=== PATIENT | female | born 1950 | race Caucasian/White ===

== ENCOUNTER → 2016-08-08 | Outpatient (CLI) | payer BC ==
[~2016-08-08] VITALS: Ht 165.1 cm; Wt 119.3 kg
[~2016-08-08] MED LIST: ASPI81TA2 PO; ATEN1TAB4 PO; CA C1TAB28 PO; CALC-98 PO; CYAN10005 PO; GLUC1CAP48 PO; LEVO150T5 PO; MOME13HF IH; MULT-245 PO; OMEP20CA9 PO; POTA10TA5 PO; PROAIR HFA8.5 GM IH
[2016-08-08 14:13] VITALS: BP 143/64
--- NOTE | 2016-08-08 15:36 | RAD ---
Ultrasound-guided fine-needle aspiration of the thyroid History: Right thyroid nodule. Comparison: Outside thyroid ultrasound 06/25/2016. Procedure: Risks and benefits of procedure were discussed with patient. Written informed consent was obtained. Preprocedure imaging demonstrated markedly heterogeneous and enlarged thyroid. The previously identified thyroid nodule is less apparent on current examination, although under real-time scanning, a definitive separation of the inferior thyroid nodule could be seen. The large inferior right thyroid nodule was targeted. Appropriate site on the skin was marked. The skin was prepped and draped in usual sterile fashion. Local anesthesia was provided with 1% lidocaine. Under ultrasound visualization, 4 total 25-gauge FNA passes were made of the inferior right thyroid nodule. During the procedure, especially near the end, the patient complained of choking sensation. It was decided not to deploy a Rotex device. Procedure was then terminated. Patient tolerated procedure well and there were no acute ill effects. Cytology was present to take custody of the samples. Impression: Technically successful fine-needle aspiration of right inferior thyroid nodule. 4 total 25-gauge fine-needle aspiration samples were obtained.
== END | disposition home or self-care (01) ==
LOC: US 13:50
PROVIDERS: ATTEND Surgery
DX: I25.10 Atherosclerotic heart disease of native coronary artery without angina pectoris (principal); E04.1 Nontoxic single thyroid nodule; E04.9 Nontoxic goiter, unspecified
CPT/HCPCS: 60300; 76942

== ENCOUNTER → 2017-08-03 | Outpatient (CLI) | payer BC | END | disposition home or self-care (01) | LOC: ECHO 09:03 | DX: I50.32 Chronic diastolic (congestive) heart failure (principal); I36.1 Nonrheumatic tricuspid (valve) insufficiency | CPT/HCPCS: 93306 ==

== ENCOUNTER 2017-12-28 06:09 | Observation (INO) | payer BC ==
[2017-12-28] VITALS (9 sets, daily range): BP systolic 105–124; BP diastolic 52–63
[~2017-12-28] VITALS: Ht 165.1 cm; Wt 117.0 kg
[~2017-12-28 06:09] MED LIST changes: +ASPI-630 PO; -ASPI81TA2 PO; +BUDE10.22 IH; +CITA10TA4 PO; +FURO-68 PO; +POTA10TA12 PO; -POTA10TA5 PO; +SIMV10TA3 PO
[2017-12-28] MEDS ORDERED: PROCHLORPERAZINE 10 MG/2 ML VIAL. IV PRN (07:00)
[2017-12-28] MEDS ORDERED: ONDANSETRON PF 4 MG/2 ML VIAL. IV PRN ×2 (07:00→10:30)
[2017-12-28] MEDS ORDERED: MORPHINE SULFATE 2 MG/ML VIAL. IV PRN ×2 (07:00→10:30)
[2017-12-28] MEDS ORDERED: fentaNYL PF VIAL 100 MCG/2 ML VIAL IV PRN (07:00)
[2017-12-28] MEDS ORDERED: LIDOCAINE 1% PF 2 ML VIAL. ID PRN (07:00)
[2017-12-28] MEDS ORDERED: HYDROmorphone 2 MG/ML VIAL IV PRN (07:00)
[2017-12-28] MEDS: IV RINGERS,LACTATED 1000ML 1,000 ML IV SCH ×2 (07:03→11:05)
[2017-12-28] MEDS ORDERED: MIDAZOLAM HCL/PF 2 MG/2 ML VIAL. ONE (07:18)
[2017-12-28] MEDS ORDERED: fentaNYL PF VIAL 250 MCG/5 ML VIAL ONE (07:18)
[2017-12-28] MEDS ORDERED: SUCCINYLCHOLINE 200 MG/10 ML VIAL. ONE (07:18)
[2017-12-28] MEDS ORDERED: ePHEDrine PF IN SALINE 50 MG/5 ML DISP.SYRIN IV ONE (08:12)
[2017-12-28] MEDS ORDERED: ONDANSETRON PF 4 MG/2 ML VIAL. ONE (08:35)
[2017-12-28] MEDS ORDERED: PROPOFOL 20 ML IV ONE (08:35)
[2017-12-28] MEDS ORDERED: PHENYLEPHRINE in 0.9% NACL PF 1 MG/10 ML SYRINGE. IV ONE (08:35)
[2017-12-28] MEDS ORDERED: DEXAMETHASONE SOD PHOS 20 MG/5 ML VIAL. ONE (08:35)
[2017-12-28] MEDS ORDERED: HYDROCORTISONE SOD SUCC/PF 100 MG/2 ML VIAL. ONE (08:35)
[2017-12-28] MEDS ORDERED: SEVOFLURANE > 120 MINUTES. IH ONE (08:36)
[2017-12-28] MEDS ORDERED: HYDROcodone/APAP 5/325MG 1 TAB TABLET PO PRN (10:30)
[2017-12-28] MEDS ORDERED: FUROSEMIDE 40 MG TABLET. PO PRN (10:30)
[2017-12-28] MEDS ORDERED: 0.9 % SODIUM CHLORIDE 10 ML DISP.SYRIN. IV PRN (10:30)
--- NOTE | 2017-12-28 10:38 | PDOC4 ---
Operative Note Operative Note Operative Note: Preoperative Diagnosis: Right thyroid nodule Postoperative Diagnosis: Same Procedure: Right thyroidectomy Surgeon: Ross Newspaper Writer: Dr. Blum Anesthesia: Gen. EBL: 50 mL Specimen: Right thyroid, stitch superior pole to pathology Drains: None Complications: None Indication: The patient is a 67-year-old female who had been followed with a right thyroid nodule. The nodule had increased in size and showed some suspicious features. Based on this the plan is to proceed with a right thyroidectomy and possible total thyroidectomy. The details and risks of surgery were discussed with the patient. The risks include bleeding, infection, recurrent laryngeal nerve injury, hypoparathyroidism, voice changes, pain, anesthetic risk, potential need for additional surgery or procedure. She understands and would like to proceed. Description: The patient was taken to the operating room and placed supine on the operating table. Gen. anesthesia was performed and the Nims device was assembled. The anterior neck was prepped with ChloraPrep and draped in a standard surgical manner. A curved incision was made in the skin lines of the neck 2 fingerbreadths above the sternal notch. Cautery dissection was carried down through platysma. Subplatysmal flaps were developed superiorly and inferiorly. The Mahorner retractor was used to facilitate exposure. The strap muscle fascia was divided in the midline and we began exploring the right thyroid lobe. There appeared to be a fairly marked amount of adherence to the strap muscles consistent with potential thyroiditis. In addition the gland and nodule were fairly thickened and difficult to mobilize. For that reason I did elect to divide the strap muscle fascia using the Harmonic scalpel to aid in exposure. We began dissecting along the superior pole and the vessels there were ligated with 2-0 Vicryl and divided. The Harmonic scalpel continued to assist with dissection. In a similar manner the inferior pole vessels were ligated with 2-0 Vicryl and divided. We then continued to mobilize in the lateral to medial fashion the remaining portion of the thyroid lobe. There was a glandular structure suspicious for parathyroid gland which was left intact and unharmed. Also the recurrent laryngeal nerve was readily identified at its insertion point of the trachea. The nerve stimulated appropriately with the Nims device and it was carefully preserved as well. The remainder of the thyroid was dissected free of the trachea using the Harmonic scalpel. We did include the isthmus and the specimen was marked at the superior aspect with a stitch and sent to pathology. Initial pathologic evaluation showed no clear evidence of malignancy and they noted changes consistent with thyroiditis as well. Hemostasis was intact and the nerve again stimulated appropriately with the Nims device. The divided strap muscle fascia was reapproximated with 3-0 Vicryl. The midline strap muscles were also approximated with 3-0 Vicryl. The platysma was then closed with 3-0 Vicryl and skin approximated with 4-0 Monocryl. Steri-Strips and a dressing were applied. The patient tolerated the procedure well and was sent to the recovery room in stable condition. At the end of the case all counts were correct. CHESTER CHAVEZ MD Dec 28, 2017 10:38
[2017-12-28] MEDS: fentaNYL PF VIAL 100 MCG/2 ML VIAL IV PRN ×2 (11:06→11:15)
[2017-12-28] MEDS: HYDROcodone/APAP 5/325MG 1 TAB TABLET PO PRN ×2 (12:09→20:38)
[2017-12-28] MEDS ORDERED: NON FORMULARY ITEM (Gluc 2KCL/Chondr/Coll Hy/Hy Ac (Glucosamine & Chondroitin Cap) 1 EACH) PO SCH (14:00)
[2017-12-28] MEDS ORDERED: IV 1/2 NORMAL SALINE 1,000 ML IV SCH (15:00)
[2017-12-28] MEDS: ALBUTEROL SULFATE 2.5 MG/3 ML NEBU. NEB SCH ×2 (15:37→20:44)
[2017-12-28] MEDS: POTASSIUM CHLORIDE 20 MEQ TABLET.ER. PO SCH ×2 (20:34→20:52)
[2017-12-28] MEDS: BUDESONIDE 0.5 MG/2 ML NEBU. NEB SCH (20:44)
[2017-12-28] MEDS ORDERED: SIMVASTATIN 10 MG TABLET PO SCH (21:00)
[2017-12-29 03:00] VITALS: BP 107/55
[2017-12-29] MEDS: HYDROcodone/APAP 5/325MG 1 TAB TABLET PO PRN (06:40)
[2017-12-29 07:00] VITALS: BP 113/57
[2017-12-29] MEDS ORDERED: LEVOTHYROXINE 150 MCG TABLET PO SCH (07:00)
[2017-12-29] MEDS ORDERED: PANTOPRAZOLE 40 MG TABLET.DR. PO SCH (07:30)
[2017-12-29 09:00] VITALS: BP 113/57
[2017-12-29] MEDS ORDERED: MULTIVITAMIN with MINERAL TABLET. PO SCH (09:00)
[2017-12-29] MEDS ORDERED: CITALOPRAM 10 MG TABLET. PO SCH (09:00)
[2017-12-29] MEDS ORDERED: CHLORTHALIDONE 25 MG TABLET. PO SCH (09:00)
[2017-12-29] MEDS: POTASSIUM CHLORIDE 20 MEQ TABLET.ER. PO SCH ×2 (09:00→09:58)
[2017-12-29] MEDS: CALCIUM CARB/VIT D3 500/200 TABLET. PO SCH ×2 (09:00→09:59)
[2017-12-29] MEDS ORDERED: ASPIRIN CHEWABLE 81 MG TABLET. PO SCH (09:00)
[2017-12-29] MEDS ORDERED: CHOLECALCIFEROL (VITAMIN D3) 1,000 UNIT TABLET PO SCH (09:00)
[2017-12-29] MEDS ORDERED: CYANOCOBALAMIN (VITAMIN B-12) 1,000 MCG TABLET. PO SCH (09:00)
[2017-12-29] MEDS ORDERED: ATENOLOL 50 MG TABLET. PO SCH (09:00)
[2017-12-29] MEDS: BUDESONIDE 0.5 MG/2 ML NEBU. NEB SCH (09:08)
[2017-12-29] MEDS: ALBUTEROL SULFATE 2.5 MG/3 ML NEBU. NEB SCH ×2 (09:09→11:27)
--- NOTE | 2017-12-29 09:40 | PDOC ---
PROGRESS NOTES Subjective Subjective doing well, voice strong Objective Objective Vital Signs Date Time Temp Pulse Resp B/P (MAP) Pulse Ox O2 Delivery O2 Flow Rate FiO2 12/29/17 09:08 94 Room Air 12/29/17 07:00 97.6 18 18 113/57 (75) 97.6 12/28/17 14:00 2.0 Intake and Output 12/29/17 07:00 Intake Total 3940 ml Balance 3940 ml Intake Oral 790 ml IV Total 3150 ml # Voids 4 Physical Exam Physical Exam dressing clean and dry Assessment Assessment R thyroid nodule Plan Plan of Care discharge Comment Review of Relevant I have reviewed the following items lou (where applicable) has been applied. Medications Current Medications Ondansetron HCl (Zofran) 4 mg PRN Q6HRS PRN IV NAUSEA/VOMITING 1ST CHOICE; Start 12/28/17 at 07:00; Stop 12/28/17 at 19:00; Status DC Fentanyl Citrate (Fentanyl 2ml Vial) 25 mcg PRN Q5MIN PRN IV MILD PAIN; Start 12/28/17 at 07:00; Stop 12/28/17 at 19:00; Status DC Fentanyl Citrate (Fentanyl 2ml Vial) 50 mcg PRN Q5MIN PRN IV MODERATE TO SEVERE PAIN Last administered on 12/28/17at 11:15; Start 12/28/17 at 07:00; Stop 12/28/17 at 19:00; Status DC Morphine Sulfate (Morphine Sulfate) 1 mg PRN Q10MIN PRN IV SEVERE PAIN; Start 12/28/17 at 07:00; Stop 12/29/17 at 06:59; Status UNV Ringer's Solution 1,000 ml @ 30 mls/hr Q24H IV Last administered on 12/28/17at 11:05; Start 12/28/17 at 07:00; Stop 12/28/17 at 18:59; Status DC Lidocaine HCl (Xylocaine-Mpf 1% 2ml Vial) 2 ml PRN 1X PRN ID PRIOR TO IV START ; Start 12/28/17 at 07:00; Stop 12/28/17 at 19:00; Status DC Hydromorphone HCl (Dilaudid) 0.5 mg PRN Q10MIN PRN IV SEV PAIN, Second choice; Start 12/28/17 at 07:00; Stop 12/29/17 at 06:59; Status UNV Prochlorperazine Edisylate (Compazine) 5 mg PACU PRN PRN IV NAUSEA, MRX1; Start 12/28/17 at 07:00; Stop 12/28/17 at 19:00; Status DC Levofloxacin/ Dextrose 150 ml @ 100 mls/hr 1X PREOP PRN IV PRIOR TO PROCEDURE Last administered on 12/28/17at 08:00; Start 12/28/17 at 06:00; Stop 12/28/17 at 18:00; Status DC Midazolam HCl (Versed) 2 mg STK-MED ONCE .ROUTE ; Start 12/28/17 at 07:18; Stop 12/28/17 at 07:19; Status DC Fentanyl Citrate (Fentanyl 5ml Vial) 250 mcg STK-MED ONCE .ROUTE ; Start at 07:18; Stop 12/28/17 at 07:19; Status DC Succinylcholine Chloride (Anectine) 200 mg STK-MED ONCE .ROUTE ; Start 12/28/17 at 07:18; Stop 12/28/17 at 07:19; Status DC Ephedrine Sulfate (ePHEDrine PF IN SALINE SYRINGE) 50 mg STK-MED ONCE IV ; Start 12/28/17 at 08:12; Stop 12/28/17 at 08:13; Status DC Phenylephrine HCl (PHENYLEPHRINE in 0.9% NACL PF) 1 mg STK-MED ONCE IV ; Start 12/28/17 at 08:35; Stop 12/28/17 at 08:36; Status DC Hydrocortisone Sodium Succinate (Solu-CORTEF) 100 mg STK-MED ONCE .ROUTE ; Start 12/28/17 at 08:35; Stop 12/28/17 at 08:36; Status DC Dexamethasone Sodium Phosphate (Decadron) 20 mg STK-MED ONCE .ROUTE ; Start at 08:35; Stop 12/28/17 at 08:36; Status DC Ondansetron HCl (Zofran) 4 mg STK-MED ONCE .ROUTE ; Start 12/28/17 at 08:35; Stop 12/28/17 at 08:36; Status DC Propofol 20 ml @ As Directed STK-MED ONCE IV ; Start 12/28/17 at 08:35; Stop at 08:36; Status DC Sevoflurane (Ultane) 90 ml STK-MED ONCE IH ; Start 12/28/17 at 08:36; Stop 12/28 at 08:37; Status DC Sodium Chloride (Normal Saline Flush) 3 ml QSHIFT PRN IV AFTER MEDS AND BLOOD DRAWS; Start 12/28/17 at 10:30 Sodium Chloride 1,000 ml @ 70 mls/hr [id number] IV Last administered on at 11:07; Start 12/28/17 at 15:00; Stop 12/29/17 at 01:59; Status DC Acetaminophen/ Hydrocodone Bitart (Lortab 5/325) 1 tab PRN Q4HRS PRN PO MILD PAIN; Start 12/28/17 at 10:30 Acetaminophen/ Hydrocodone Bitart (Lortab 5/325) 2 tab PRN Q4HRS PRN PO MODERATE PAIN, SEVERE PAIN Last administered on 12/29/17at 06:40; Start 12/28/17 at 10:30 Morphine Sulfate (Morphine Sulfate) 1 mg PRN Q1HR PRN IV PAIN; Start 12/28/17 at 10:30 Ondansetron HCl (Zofran) 4 mg PRN Q6HRS PRN IV NAUESA, 1ST CHOICE; Start at 10:30 Aspirin (Children'S Aspirin) 81 mg DAILY PO ; Start 12/29/17 at 09:00 Citalopram Hydrobromide (CeleXA) 10 mg DAILY PO ; Start 12/29/17 at 09:00 Cyanocobalamin (Vitamin B-12) 1,000 mcg DAILY PO ; Start 12/29/17 at 09:00 Furosemide (Lasix) 40 mg PRN DAILY PRN PO SWELLING; Start 12/28/17 at 10:30 Potassium Chloride (Klor-Con) 20 meq TID PO ; Start 12/28/17 at 21:00 Simvastatin (Zocor) 10 mg QHS PO Last administered on 12/28/17at 20:34; Start at 21:00 Atenolol (Tenormin) 100 mg DAILY PO ; Start 12/29/17 at 09:00 Budesonide (Pulmicort) 0.5 mg RTBID NEB Last administered on 12/29/17at 09:08; Start 12/28/17 at 20:00 Vitamin D (Vitamin D3) 1,000 unit DAILY PO ; Start 12/29/17 at 09:00 Calcium/Vitamin D (Oscal D 500mg/ 200uts) 1 tab DAILY PO ; Start 12/29/17 at 09: 00 Non-Formulary Medication (Gluc 2KCL/ Chondr/Junito Hy/Hy Ac (Glucosamine & Chondroitin Cap)) 1 each TID PO ; Start 12/28/17 at 14:00; Status UNV Levothyroxine Sodium (Synthroid) 150 mcg DAILY07 PO Last administered on at 06:40; Start 12/29/17 at 07:00 Multivitamins (Thera M Plus) 1 tab DAILY PO ; Start 12/29/17 at 09:00 Pantoprazole Sodium (Protonix) 40 mg DAILYAC PO Last administered on 12/29/17at 06:40; Start 12/29/17 at 07:30 Chlorthalidone (Thalitone) 25 mg DAILY PO ; Start 12/29/17 at 09:00 Albuterol Sulfate (Ventolin Neb Soln) 2.5 mg RTQID NEB Last administered on at 09:09; Start 12/28/17 at 16:00 Active Scripts Active Reported Symbicort 80-4.5 Mcg Inhaler (Budesonide/Formoterol Fumarate) 10.2 Gm Hfa.aer.ad 1 Puff IH DAILY Simvastatin 10 Mg Tablet 1 Tab PO QHS Citalopram Hbr (Citalopram Hydrobromide) 10 Mg Tablet 1 Tab PO DAILY Lasix (Furosemide) 40 Mg Tablet 1 Tab PO PRN DAILY PRN Glucosamine & Chondroitin Cap (Gluc 2KCL/Chondr/Junito Hy/Hy Ac) 1 Each Capsule 1 Each PO TID Calcium + Vitamin D Tablet (Calcium Carbonate/Vitamin D3) 1 Each Tablet 1 Each PO DAILY Klor-Con 10 (Potassium Chloride) 10 Meq Tablet.er 20 Meq PO TID Omeprazole 20 Mg Capsule.dr 20 Mg PO DAILY Levothyroxine Sodium 150 Mcg Tablet 150 Mcg PO DAILY Aspirin 81 Mg Tab.chew 81 Mg PO DAILY Multi Vitamin Daily (Multivitamin) 1 Each Tablet 1 Each PO DAILY Vitamin B-12 (Cyanocobalamin (Vitamin B-12)) 1,000 Mcg Tablet 1,000 Mcg PO DAILY Vitamin D3 1,000 Unit Tablet (Ca Cmb No.1/Vit D3/B-6/Fa/B12) 1 Each Tablet 1 Each PO DAILY Atenolol-Chlorthalidone 100-25 (Atenolol/Chlorthalidone) 1 Each Tablet 1 Each PO DAILY Vitals/I & O Vital Sign - Last 24 Hours 12/28/17 12/28/17 12/28/17 12/28/17 10:18 10:18 10:33 10:48 Temp 97.7 97.7 Pulse 74 74 74 Resp 20 20 20 B/P (MAP) 136/67 117/56 122/56 Pulse Ox 96 96 98 O2 Delivery Mask Simple Mask Simple Mask Simple Mask O2 Flow Rate 10 10 10 10 12/28/17 12/28/17 12/28/17 12/28/17 11:03 11:06 11:15 11:18 Temp 97.7 97.7 Pulse 66 78 Resp 20 20 20 20 B/P (MAP) 131/61 122/57 Pulse Ox 97 99 98 O2 Delivery Simple Mask Simple Mask Room Air Nasal Cannula O2 Flow Rate 10 10.0 2 12/28/17 12/28/17 12/28/17 12/28/17 11:35 12:00 12:09 12:09 Pulse 66 B/P (MAP) 122/55 (77) Pulse Ox 94 97 97 O2 Delivery Nasal Cannula Room Air Nasal Cannula Nasal Cannula O2 Flow Rate 2 2.0 2.0 12/28/17 12/28/17 12/28/17 12/28/17 12:15 12:30 12:30 12:30 Pulse 66 67 67 B/P (MAP) 122/55 (77) 115/59 (77) 115/59 (77) Pulse Ox 94 95 95 O2 Delivery Room Air Room Air Nasal Cannula Room Air O2 Flow Rate 2.0 12/28/17 12/28/17 12/28/17 12/28/17 13:00 13:15 13:30 13:30 Pulse 66 66 66 B/P (MAP) 110/52 (71) 105/53 (70) 105/53 (70) Pulse Ox 96 96 96 O2 Delivery Room Air Room Air Nasal Cannula O2 Flow Rate 2.0 2.0 12/28/17 12/28/17 12/28/17 12/28/17 14:00 15:00 15:42 19:00 Temp 98.1 98.3 98.1 98.3 Pulse 69 68 77 Resp 18 20 B/P (MAP) 109/63 (78) 116/60 (78) 124/62 (82) Pulse Ox 96 96 94 92 O2 Delivery Room Air Room Air Room Air O2 Flow Rate 2.0 12/28/17 12/28/17 12/28/17 12/28/17 20:25 20:38 20:46 21:40 Resp 18 Pulse Ox 92 94 94 O2 Delivery Room Air Room Air Room Air 12/28/17 12/29/17 12/29/17 12/29/17 23:00 03:00 06:40 07:00 Temp 98.4 97.7 97.6 98.4 97.7 97.6 Pulse 67 62 18 Resp 18 18 B/P (MAP) 119/59 (79) 107/55 (72) 113/57 (75) Pulse Ox 91 94 94 92 O2 Delivery Room Air Room Air Room Air Room Air 12/29/17 12/29/17 07:40 09:08 Pulse Ox 94 O2 Delivery Room Air Room Air Intake and Output 12/28/17 12/28/17 12/29/17 15:00 23:00 07:00 Intake Total 2200 ml 240 ml 1500 ml Balance 2200 ml 240 ml 1500 ml CHESTER CHAVEZ MD Dec 29, 2017 09:40
--- NOTE | 2017-12-29 09:41 | DISCH ---
DISCHARGE INSTRUCTIONS Condition on Discharge Condition on Discharge: Stable Activity After Discharge Activity Instructions for Disc: Resume previous activity Diet after Discharge Diet after Discharge: Regular Wound Incision Care Wound/Incision Care: Other, see below Follow-Up Follow up with: Dr Chavez in 2 weeks, call for appt [phone] CHESTER CHAVEZ MD Dec 29, 2017 09:41
--- NOTE | 2017-12-29 09:43 | PDOC3 ---
Discharge Summary Visit Information Date of Admission: Dec 28, 2017 Date of Discharge: Dec 29, 2017 Admitting Diagnosis: R thyroid nodule Brief Hospital Course Allergies Allergies Coded Allergies Type Severity Reaction Last Updated Verified Penicillins Allergy Intermediate Rash 12/28/17 No codeine Allergy Intermediate RASH/PARALYSIS 12/28/17 No Vital Signs Vital Signs Date Time Temp Pulse Resp B/P (MAP) Pulse Ox O2 Delivery O2 Flow Rate FiO2 12/29/17 09:08 94 Room Air 12/29/17 07:00 97.6 113/57 (75) 97.6 12/28/17 14:00 2.0 Brief Hospital Course Ms. Hollins is a 67 old female who presented with an enlarging right thyroid nodule. She underwent a right thyroidectomy and her postoperative course was uneventful. Discharge Information Follow Up: Weeks (2 weeks) Disposition/Orders: D/C to Home Scheduled Aspirin (Aspirin) 81 Mg Tab.chew, 81 MG PO DAILY, (Reported) Entered as Reported by: SRAVANI BARBOSA on 07/29/13 1321 Last Taken: Unknown Dose on 12/20/17 Last Action: Continued on 12/28/17 1029 by CHESTER CHAVEZ Atenolol/Chlorthalidone (Atenolol-Chlorthalidone 100-25) 1 Each Tablet, 1 EACH PO DAILY, (Reported) Entered as Reported by: SRAVANI BARBOSA on 07/29/13 1321 Last Taken: Unknown Dose on 12/28/17 0430 Last Action: Converted on 1029 by CHESTER CHAVEZ Budesonide/Formoterol Fumarate (Symbicort 80-4.5 Mcg Inhaler) 10.2 Gm Hfa.aer.ad , 1 PUFF IH DAILY, (Reported) Entered as Reported by: CHERRI AYALA on 12/24/17 1310 Last Taken: Unknown Dose on 12/27/17 Last Action: Converted on 12/28/17 1029 by CHESTER CHAVEZ Ca Cmb No.1/Vit D3/B-6/Fa/B12 (Vitamin D3 1,000 Unit Tablet) 1 Each Tablet, 1 EACH PO DAILY, (Reported) Entered as Reported by: SRAVANI BARBOSA on 07/29/13 1321 Last Taken: Unknown Dose on 12/20/17 Last Action: Converted on 12/28/17 1029 by CHESTER CHAVEZ Calcium Carbonate/Vitamin D3 (Calcium + Vitamin D Tablet) 1 Each Tablet, 1 EACH PO DAILY, (Reported) Entered as Reported by: SRAVANI BARBOSA on 07/29/13 132 Last Taken: Unknown Dose on 12/20/17 Last Action: Converted on 12/28/17 1029 by CHESTER CHAVEZ Citalopram Hydrobromide (Citalopram Hbr) 10 Mg Tablet, 1 TAB PO DAILY, #30 Ref 3 (Reported) Entered as Reported by: CHERRI AYALA on 12/24/17 1307 Last Taken: Unknown Dose on 12/28/17 0430 Last Action: Continued on 1029 by CHESTER CHAVEZ Cyanocobalamin (Vitamin B-12) (Vitamin B-12) 1,000 Mcg Tablet, 1,000 MCG PO DAILY, (Reported) Entered as Reported by: SRAVANI BARBOSA on 07/29/13 132 Last Taken: Unknown Dose on 12/20/17 Last Action: Continued on 12/28/17 1029 by CHESTER CHAVEZ Gluc 2KCL/Chondr/Junito Hy/Hy Ac (Glucosamine & Chondroitin Cap) 1 Each Capsule, 1 EACH PO TID, (Reported) Entered as Reported by: SRAVANI BARBOSA on 07/29/13 132 Last Taken: Unknown Dose on 12/20/17 Last Action: Converted on 12/28/17 1029 by CHESTER CHAVEZ Levothyroxine Sodium (Levothyroxine Sodium) 150 Mcg Tablet, 150 MCG PO DAILY, ( Reported) Entered as Reported by: SRAVANI BARBOSA on 07/29/13 132 Last Taken: Unknown Dose on 12/27/17 Last Action: Converted on 12/28/17 1029 by CHESTER CHAVEZ Multivitamin (Multi Vitamin Daily) 1 Each Tablet, 1 EACH PO DAILY, (Reported) Entered as Reported by: SRAVANI BARBOSA on 07/29/13 132 Last Taken: Unknown Dose on 12/20/17 Last Action: Converted on 12/28/17 1029 by CHESTER CHAVEZ Omeprazole (Omeprazole) 20 Mg Capsule.dr, 20 MG PO DAILY, (Reported) Entered as Reported by: SRAVANI BARBOSA on 07/29/13 1321 Last Taken: Unknown Dose on 12/28/17 0430 Last Action: Converted on 1029 by CHESTER CHAVEZ Potassium Chloride (Klor-Con 10) 10 Meq Tablet.er, 20 MEQ PO TID, (Reported) Entered as Reported by: SRAVANI BARBOSA on 07/29/13 1321 Last Taken: Unknown Dose on 12/27/17 Last Action: Continued on 12/28/17 1029 by CHESTER CHAVEZ Simvastatin (Simvastatin) 10 Mg Tablet, 1 TAB PO QHS, #30 Ref 5 (Reported) Entered as Reported by: CHERRI AYALA on 12/24/17 1309 Last Taken: Unknown Dose on 12/27/17 Last Action: Continued on 12/28/17 1029 by CHESTER CHAVEZ Scheduled PRN Furosemide (Lasix) 40 Mg Tablet, 1 TAB PO PRN DAILY PRN for SWELLING, #90 Ref 1 (Reported) Entered as Reported by: CHERRI AYALA on 12/24/17 1306 Last Taken: Unknown Dose on 12/26/17 Last Action: Continued on 12/28/17 1029 by CHESTER MEIER MD Dec 29, 2017 09:43
--- NOTE | 2017-12-30 17:09 | PATHOLOGY ---
[facility] Accession Number: [id number] . 01 Material submitted: . PART A: THYROID, STITCH AT SUPERIOR POLE - FS PART B: MIDLINE LYMPH NODE . 01 Clinical history: . R nodule thyroid . 02 Diagnosis: A. Thyroid lobe, right thyroidectomy: - Evette's thyroiditis. - No parathyroid glands identified. . B. Lymph node, midline lymph node excision: - Reactive changes, negative for malignancy. [facility]/12/30/2017 . 02 Comment: There is a dominant nodule within the right thyroid lobe. However, the dominant nodule and the thyroid tissue within the remainder of the lobe histologically appear similar and show features of Evette's thyroiditis. There is no evidence of malignancy. Sections of the midline lymph node show reactive changes and is also negative for malignancy. The case is also examined by Dr. Fitch, who concurs with the diagnoses. (JPM:[facility] 12/30/2017) . 02 Electronically signed: . Jl León MD, Pathologist NPI- [id number] . 01 Gross description: . A. Received fresh for frozen section is a specimen labeled with the patient's name and "R thyroid, stitch at superior pole". The specimen consists of a thyroid lobectomy measuring 5.5 x 3.8 x 2.8 cm. A stitch is present designating the superior margin. The specimen weighs 26 grams. The capsular surface is red and intact, with cautery present on the posterior aspect. The specimen is entirely inked black. The specimen is serially sectioned to reveal a mancuso homogenous nodule with a well circumscribed border measuring 4 cm in greatest dimension. A airport representative section is submitted for frozen section in one cassette labeled FSA1. The remainder of this tissue is submitted for permanent histological examination in block A1. (MAP:[facility] 12/28/2017) . Additional airport representative sections are submitted in A2-A8. . B. Received in formalin labeled "Jackie Hollins, mid line lymph node" is a pink lymph node candidate measuring 0.6 x 0.4 x 0.3 cm which is entirely submitted in B1. (SDY; 12/28/17) . . . Frozen Section: A. RT thyroid: - Negative for malignancy on airport representative section. - These findings are discussed with Dr. Hawkins at 9:55 am on 12/28/2017. . (MAP:[facility] 12/28/2017) . Frozen section performed at [facility], [address] [place] [id number]. SYU/QTP . 02 Pathologist provided ICD-10: E06.3, R59.9 . 02 CPT . 406015, 292254 Specimen Comment: A courtesy copy of this report has been sent to Specimen Comment: [phone], . Specimen Comment: Report sent to / DR SEGURA Performed at: 01 [facility] [address], [place], [place] [id number] MD Gael Ladd MD Phone: [phone] Performed at: [facility] [address] [place], [place] [id number] MD Jl León MD Phone: [phone]
== END 2017-12-29 12:00 | disposition home or self-care (01) ==
LOC: OPSVCIP 06:09 → INTOOBSV 06:09 → 4 NORTH 11:58
PROVIDERS: ADMIT Surgery; ATTEND Surgery
DX: E04.1 Nontoxic single thyroid nodule (principal)
CPT/HCPCS: 60210; 88305; 88307; 88331; 94640; 94760; A7015; G0378; G0379; J0330; J1100; J1720; J1956; J2250; J2370; J2405; J2704; J3010; J7613; J7626; J7120

== ENCOUNTER → 2019-01-14 | Outpatient (CLI) | payer BC ==
[~2019-01-14] MED LIST changes: +ALBU2.5V8 IH; +CYAN-25 PO; -CYAN10005 PO; +OMEP20CA10 PO; -OMEP20CA9 PO; -PROAIR HFA8.5 GM IH; +SIMV10TA15 PO; -SIMV10TA3 PO
--- NOTE | 2019-01-14 15:33 | RAD ---
MR#: [id number] Date of Study: 01/14/2019 Ordering Physician: RAMIRO BONNER, Referring Physician: RAMIRO BONNER, Tech: Horace Maloney MBA, RDMS, RVT, RDCS, RTR APPROVED REPORT Patient Location : OUT-PATIENT Indications venous insufficiency Findings Grayscale images of the bilateral greater saphenous veins and lesser saphenous veins are unremarkable . The right great saphenous vein measures 7.7 mm and the left great saphenous vein measures 7.1 mm. No reflux is evident in the bilateral greater and lesser saphenous veins. Critical Notification Critical Value: No <Conclusion> No reflux noted Signed by : Jimmy Ragland, Electronically Approved : 01/14/2019 15:33:02
== END | disposition home or self-care (01) ==
LOC: US 12:01
PROVIDERS: ATTEND Internal Medicine Cardiovascular Disease
DX: I87.2 Venous insufficiency (chronic) (peripheral) (principal)
CPT/HCPCS: 93970

== ENCOUNTER → 2020-02-06 | Outpatient (CLI) | payer BC ==
[~2020-02-06] MED LIST changes: -OMEP20CA10 PO; +OMEP20CA16 PO
--- NOTE | 2020-02-06 12:58 | CARD ---
MR#: [id number] Date of Study: 02/06/2020 Ordering Physician: RAMIRO CHAPPELL, Referring Physician: RAMIRO CHAPPELL, Tech: Jennifer Marquis APPROVED REPORT EXAM: Two-dimensional and M-mode echocardiogram with Doppler and color Doppler. Other Information Quality : AverageHR: 70bpm Technically limited study due to Obesity INDICATION Cardiac Disease: CAD 2D DIMENSIONS RVDd3.7 (2.9-3.5cm)Left Atrium(2D)3.5 (1.6-4.0cm) IVSd1.4 (0.7-1.1cm)Aortic Root(2D)3.4 (2.0-3.7cm) LVDd5.1 (3.9-5.9cm)LVOT Diameter2.1 (1.8-2.4cm) PWd1.3 (0.7-1.1cm)LVDs2.6 (2.5-4.0cm) FS (%) 49.9 %SV102.5 ml LVEF(%)81.0 (>50%) Aortic Valve AoV Peak Maykel.159.0cm/sAoV VTI39.8cm AO Peak GR.10.1mmHgLVOT Peak Maykel.96.3cm/s AO Mean GR.6mmHgAVA (VMAX)2.09cm2 Mitral Valve MV E Gtjvcqfi418.0cm/sMV DECEL EHMQ645ep MV A Twqhrhjp73.8cm/sE/A Ratio1.3 Pulmonary Valve PV Peak Fgbzfnvf29.0cm/s Tricuspid Valve TR P. Bktdimbl422tx/sRAP OXMSYDXP06bqFd TR Peak Gr.42fzSbGZQU17jqQq Pulmonary Vein S1 Mybnbnzl28.5cm/sD2 Bdbbkpmm67.9cm/s PVa [id number] LEFT VENTRICLE The left ventricle is normal size. There is mild to moderate concentric left ventricular hypertrophy. The left ventricular systolic function is normal. The Ejection Fraction is 60-65%. There is normal L V segmental wall motion. The left ventricular diastolic function and filling is normal for age. RIGHT VENTRICLE The right ventricle is mildly dilated. There is normal right ventricular wall thickness. The right ve ntricular systolic function is normal. ATRIA The left atrium size is normal. The right atrium is mildly dilated. The interatrial septum is intact with no evidence for an atrial septal defect or patent foramen ovale as noted on 2-D or Doppler imagi ng. AORTIC VALVE The aortic valve is thickened but opens well. Doppler and Color Flow revealed trace aortic regurgitat ion. There is no significant aortic valvular stenosis. Calculated aortic valve area is 2.5 cm2 with m aximum pressure gradient of 11 mmHg and mean pressure gradient of 6 mmHg. MITRAL VALVE The mitral valve is normal in structure and function. There is no evidence of mitral valve prolapse. There is no mitral valve stenosis. Doppler and Color-flow revealed trace mitral regurgitation. TRICUSPID VALVE The tricuspid valve is normal in structure and function. Doppler and Color Flow revealed trace to mil d tricuspid regurgitation with an estimated PAP of 70 mmHg. There is no tricuspid valve stenosis. PULMONIC VALVE The pulmonic valve is not well visualized. Doppler and Color Flow revealed trace pulmonic valvular re gurgitation. GREAT VESSELS The aortic root is normal in size. The ascending aorta is Mildly dilated. The IVC is dilated. PERICARDIAL EFFUSION There is no evidence of significant pericardial effusion. Critical Notification Critical Value: No <Conclusion> The left ventricular systolic function is normal. The Ejection Fraction is 60-65%. There is normal LV segmental wall motion. Trace mitral regurgitation. Trace to mild tricuspid regurgitation with an estimated PAP of 70 mmHg. The ascending aorta is mildly dilated. There is no evidence of significant pericardial effusion. Signed by : Ramiro Chappell, Electronically Approved : 02/06/2020 12:58:03
== END ==
LOC: ECHO 08:21
PROVIDERS: ATTEND Internal Medicine Cardiovascular Disease
DX: I07.1 Rheumatic tricuspid insufficiency (principal); I25.10 Atherosclerotic heart disease of native coronary artery without angina pectoris
CPT/HCPCS: 93306

== ENCOUNTER → 2020-02-06 | Outpatient (CLI) | payer BC ==
[~2020-02-06] MED LIST changes: +REGADENOSON 0.4 MG/5 ML DISP.SYRIN. IV ONE
--- NOTE | 2020-02-06 12:52 | RAD ---
MR#: [id number] Date of Study: 02/06/2020 Ordering Physician: RAMIRO BONNER Referring Physician: STEPHANIE GONSALEZ Tech: RT Monica Wagner) (N) APPROVED REPORT Test Type: Pharmacological Stress Nurse/Tech: Kami Magaña RN Test Indications: CAD Cardiac History: High cholesterol, Hypertension, Diabetes Medications: See Electronic Medical Record Medical History: See Electronic Medical Record Resting ECG: SR Resting Heart Rate: 66 bpm Resting Blood Pressure: 123/59mmHg Pretest Chest Pain: No chest pain Nurse/Tech Notes S1S2, Lungs CTA Consent: The procedure was explained to the patient in lay terms. Informed consent was witnessed. Ranjan eout was entered into makemoji. History and Stress Test performed by RT Monica Beal) (N) Pharm. Details Pharmacologic stress testing was performed using 0.4mg per 5ml of regadenoson given intravenously ove r 7-10 seconds. Stress Symptoms Nausea, Vomiting, Flushing, Fatigue POST EXERCISE Reason for Termination: Infusion complete Max HR: 80 bpm Max Blood Pressure: 139/59mmHg Blood Pressure response to exercise: Normal blood pressure response during stress. Heart Rate response to exercise: WNL Chest Pain: No. Arrhythmia: No. ST Change: No. INTERPRETATION Stress EKG Conclusion: Baseline EKG showed sinus rhythm. No ischemic changes at peak stress. No arr hythmias. Imaging Protocol IMAGE PROTOCOL: Stress Tc-99m/rest Tc-99m 2 days Rest: Stress: Viability: Radiopharm. Tc99m Sestamibi Dose32.6mCi Duration 15min. Img Date 02/06/2020 Inj-Img Amhq26qno. 60min. Stress Admin Site: IV - Right HandAdministrator: RT Monica Beal)(N) STRESS DATA End Diast. Vol.115.0mlAv. Heart Rate64.0bpm End Syst. Vol.17.0mlCO Index BSA0.0L/min Myocardial Ddxo095.0gEject. Hhbvcnvp24.0% Stress Rates Pk. Fill Rate2.65EDV/secLVtime Pk. Fill 150.84msec Pk. Empty Rate3.67ESV/secLVtime Pk. Dzowb476.95msec /3 Pk. Fill1.68EDV/sec Stress Scores Regional WT0.00Summed WT0.00 Regional WM0.00Summed WM0.00 LV Perfusion Stress scintigraphic images did not show any significant perfusion defects. Wall Motion Normal left ventricular systolic function with ejection fraction calculated at 83%. LV Perf. Quant 17 Seg. SSS0.00 Stress Defect Extent (% LAD)0.00Rest Defect Extent (% LAD)Rev. Defect Extent (% LAD) Stress Defect Extent (% LCX) 0.00Rest Defect Extent (% LCX)Rev. Defect Extent (% LCX) Stress Defect Extent (% RCA)0.00Rest Defect Extent (% RCA)Rev. Defect Extent (% RCA) Stress Defect Extent (% LUCERO)0.00Rest Defect Extent (% LUCERO)Rev. Defect Extent (% LUCERO) Conclusion 1. Regadenoson cardioisotope stress test did not show any evidence of ischemia or infarct. 2. Normal left ventricular systolic function with ejection fraction calculated at 83%. 3. Low risk for cardiac events. Signed by : Ramiro Bonner, Electronically Approved : 02/06/2020 12:52:31
== END ==
LOC: NM 08:29
PROVIDERS: ATTEND Internal Medicine Cardiovascular Disease
DX: I25.10 Atherosclerotic heart disease of native coronary artery without angina pectoris (principal); I10 Essential (primary) hypertension
CPT/HCPCS: 78452; 93017; A9500; J2785

== ENCOUNTER → 2020-02-10 | Outpatient (CLI) | payer BC ==
[~2020-02-10] MED LIST changes: +GABA300C18 PO; +HYDR-2761 PO; -REGADENOSON 0.4 MG/5 ML DISP.SYRIN. IV ONE
== END ==
LOC: LAB 14:49
PROVIDERS: ATTEND Surgery
DX: Z01.812 Encounter for preprocedural laboratory examination (principal); K43.9 Ventral hernia without obstruction or gangrene; Z88.0 Allergy status to penicillin; Z88.5 Allergy status to narcotic agent; Z20.828 Contact with and (suspected) exposure to other viral communicable diseases
CPT/HCPCS: U0003

== ENCOUNTER 2020-02-14 05:53 | Observation (INO) | payer BC ==
[2020-02-14] VITALS (12 sets, daily range): BP systolic 104–138; BP diastolic 39–99
[~2020-02-14] VITALS: Ht 165.1 cm; Wt 130.3 kg
[~2020-02-14 05:53] MED LIST changes: -HYDR-2761 PO
[2020-02-14] MEDS ORDERED: SEVOFLURANE 61 TO 120 MINUTES. IH ONE ×2 (06:29→08:07)
[2020-02-14] MEDS ORDERED: ROCURONIUM 50 MG/5 ML VIAL. ONE ×2 (06:29→07:05)
[2020-02-14] MEDS ORDERED: PROPOFOL 10 MG/ML (20ML) VIAL. IV ONE ×2 (06:30→07:46)
[2020-02-14] MEDS ORDERED: LIDOCAINE 2% PF 5 ML VIAL. ONE ×2 (06:30→07:03)
[2020-02-14] MEDS: IV RINGERS,LACTATED 1000ML 1,000 ML IV SCH ×2 (06:56→09:38)
[2020-02-14] MEDS ORDERED: PROCHLORPERAZINE 10 MG/2 ML VIAL. IV PRN (07:00)
[2020-02-14] MEDS ORDERED: MORPHINE SULFATE 2 MG/ML VIAL. IV PRN (07:00)
[2020-02-14] MEDS ORDERED: HYDROmorphone 2 MG/ML VIAL IV PRN ×2 (07:00→09:15)
[2020-02-14] MEDS ORDERED: fentaNYL PF VIAL 100 MCG/2 ML VIAL IV PRN (07:00)
[2020-02-14] MEDS ORDERED: ONDANSETRON PF 4 MG/2 ML VIAL. IV PRN (07:00)
[2020-02-14] MEDS ORDERED: fentaNYL PF VIAL 100 MCG/2 ML VIAL ONE ×2 (07:03→09:50)
[2020-02-14] MEDS ORDERED: PHENYLEPHRINE in 0.9% NACL PF 1 MG/10 ML SYRINGE. IV ONE (07:42)
[2020-02-14] MEDS ORDERED: DEXAMETHASONE SOD PHOS 4 MG/ML VIAL ONE (07:59)
[2020-02-14] MEDS ORDERED: NEOSTIGMINE METHYLSULFATE 5 MG/5 ML SYRINGE. ONE (08:08)
[2020-02-14] MEDS ORDERED: GLYCOPYRROLATE 1 MG/5 ML VIAL. ONE (08:08)
[2020-02-14] MEDS ORDERED: ONDANSETRON PF 4 MG/2 ML VIAL. ONE (08:09)
[2020-02-14] MEDS ORDERED: IV NORMAL SALINE 1000ML BAG 1,000 ML IV SCH (09:06)
[2020-02-14] MEDS: IV 1/2 NORMAL SALINE 1,000 ML IV SCH ×2 (09:06→20:46)
--- NOTE | 2020-02-14 09:06 | PDOC4 ---
Operative Note Operative Note Operative Note: Preoperative Diagnosis: Ventral hernia Postoperative Diagnosis: Same Procedure: Ventral hernia repair with mesh Surgeon: [facility] Consultant: Crystal UMANZOR Anesthesia: Gen EBL: 20 mL Specimen: None Drains: None Complications: None Indication: The patient is a 70-year-old female who was referred with a hernia located prior trocar site in the mid abdomen. The plan is to proceed with repair of the ventral hernia. The risks of surgery were discussed which include bleeding, infection, recurrence, pain, anesthetic risk, potential need for additional surgery procedure. She understands and would like to proceed. Description: The patient was taken to the operating room and placed supine in the operating table. General anesthesia was performed. The abdomen is prepped with ChloraPrep and draped with sterile towels, sheets, and an Ioban. A curved infraumbilical incision was made in the skin with a scalpel. Cautery dissection was carried down to the fascia. The umbilical tissue was elevated off the fascia. There was some omentum adherent to the hernia sac which was freed up. The omentum was then fully reduced. A preperitoneal plane was then developed circumferentially around the hernia defect. The peritoneum was closed with 0 Vicryl. A medium sized Ventralex ST mesh was then placed in the preperitoneal plane. The mesh was sutured at the 12, 3, 6, 9:00 positions using 0 Prolene in a horizontal mattress fashion. The fascial edges were closed over the mesh with 0 Prolene. The umbilicus was secured back to the fascia with 0 Vicryl. The subcutaneous tissue was closed with 3-0 Vicryl and skin approximated 4 Monocryl. Steri-Strips and a sterile dressing were applied. The patient tolerated the procedure well and was sent to the recovery room in stable condition. At the end the case all counts were correct. CHESTER CHAVEZ MD Feb 14, 2020 09:06
[2020-02-14] MEDS ORDERED: 0.9 % SODIUM CHLORIDE 10 ML DISP.SYRIN. IV PRN (09:15)
[2020-02-14] MEDS ORDERED: ONDANSETRON PF 4 MG/2 ML VIAL. IVP PRN (09:15)
[2020-02-14] MEDS ORDERED: NALOXONE 0.4 MG/ML VIAL. IV PRN (09:15)
[2020-02-14] MEDS ORDERED: HYDROcodone/APAP 5/325MG 1 TAB TABLET PO PRN (09:15)
[2020-02-14] MEDS ORDERED: SUGAMMADEX SODIUM 200 MG/2 ML VIAL. IVP ONE (09:30)
[2020-02-14] MEDS: fentaNYL PF VIAL 100 MCG/2 ML VIAL IV PRN ×2 (09:55→10:43)
[2020-02-14] MEDS ORDERED: ALBUTEROL SULFATE 2.5 MG/3 ML NEBU. NEB ONE (10:15)
[2020-02-14] MEDS: ALBUTEROL SULFATE 2.5 MG/3 ML NEBU. NEB SCH ×3 (12:00→20:58)
[2020-02-14] MEDS: POTASSIUM CHLORIDE 20 MEQ TABLET.ER. PO SCH ×2 (12:00→17:00)
[2020-02-14] MEDS: HYDROcodone/APAP 5/325MG 1 TAB TABLET PO PRN ×2 (15:45→20:46)
--- NOTE | 2020-02-14 16:42 | NUR ---
Wound/Ostomy Care Wound Type/Assessment: Patient seen per wound care consult. See wound assessment. Patient has wound to left dorsal foot. Patient states she is not diabetic but has also been told she is. Therefore without H&P unable to classify this wound. Patient states she has been seen by Dr. Francisco for podiatry. Wound cleansed, assessed, and measured. Treatment Recommendations/Plan: Recommendations for honey alginate to wound bed and cover with telfa dressing. Change every 2-3 days. Dressing applied. No other wounds noted. Coccyx is reddened but remains blanchable. Education provided: Patient educated on dressing changes and PU prevention. Offloading surface/device: A wheel chair ordered for prevention and comfort for patient while up in chair. Recommended Referrals/Tests: Discharge Recommendations for dressings: Dressing change instructions left in room, as well as extra honey alginate and telfa dressings. Patient in chair at this time. Call light in reach. Will follow patient regarding wound care.
[2020-02-14] MEDS: BUDESONIDE 0.5 MG/2 ML NEBU. NEB SCH (20:59)
[2020-02-14] MEDS ORDERED: SIMVASTATIN 10 MG TABLET PO SCH (21:00)
[2020-02-15 03:00] VITALS: BP 108/44
[2020-02-15] MEDS: HYDROcodone/APAP 5/325MG 1 TAB TABLET PO PRN ×2 (05:45→14:51)
[2020-02-15] MEDS ORDERED: LEVOTHYROXINE 150 MCG TABLET PO SCH (06:00)
[2020-02-15 07:00] VITALS: BP 122/53
[2020-02-15] MEDS: ALBUTEROL SULFATE 2.5 MG/3 ML NEBU. NEB SCH ×4 (07:21→18:31)
[2020-02-15] MEDS: BUDESONIDE 0.5 MG/2 ML NEBU. NEB SCH ×2 (07:21→18:31)
[2020-02-15] MEDS ORDERED: PANTOPRAZOLE 40 MG TABLET.DR. PO SCH (07:30)
[2020-02-15] MEDS: POTASSIUM CHLORIDE 20 MEQ TABLET.ER. PO SCH ×3 (08:08→17:03)
[2020-02-15] MEDS ORDERED: ASPIRIN CHEWABLE 81 MG TABLET. PO SCH (09:00)
[2020-02-15] MEDS ORDERED: NON FORMULARY ITEM (Budesonide/Formoterol Fumarate (Symbicort 80-4.5 Mcg Inhaler) 1 PUFF) IH SCH (09:00)
[2020-02-15] MEDS ORDERED: CHLORTHALIDONE 25 MG TABLET. PO SCH (09:00)
[2020-02-15] MEDS ORDERED: CHOLECALCIFEROL (VITAMIN D3) 1,000 UNIT TABLET PO SCH (09:00)
[2020-02-15] MEDS ORDERED: ATENOLOL PO SCH (09:00)
[2020-02-15] MEDS ORDERED: CYANOCOBALAMIN (VITAMIN B-12) 1,000 MCG TABLET. PO SCH (09:00)
[2020-02-15] MEDS ORDERED: CITALOPRAM 10 MG TABLET. PO SCH (09:00)
[2020-02-15] MEDS ORDERED: GABAPENTIN 300 MG CAPSULE. PO SCH (09:00)
[2020-02-15] MEDS ORDERED: CHLORTHALIDONE PO SCH (09:00)
[2020-02-15] MEDS ORDERED: ATENOLOL 50 MG TABLET. PO SCH (09:00)
[2020-02-15] MEDS ORDERED: MULTIVITAMIN with MINERAL TABLET. PO SCH (09:00)
[2020-02-15] MEDS ORDERED: CALCIUM CARB/VIT D3 500/200 TABLET. PO SCH (09:00)
--- NOTE | 2020-02-15 09:13 | PDOC ---
SURGICAL PROGRESS NOTE DATE: 02/15/20 TIME: 09:10 Subjective some phlegm with nebulizer sore ambulating to BR taking clears Vital Signs Vital Signs Date Time Temp Pulse Resp B/P (MAP) Pulse Ox O2 Delivery O2 Flow Rate FiO2 02/15/20 08:13 68 122/53 02/15/20 08:00 Room Air 2.0 02/15/20 07:30 98 02/15/20 07:04 16 02/15/20 07:00 98.1 98.1 I&O Intake and Output 02/15/20 07:00 Intake Total 2150 ml Output Total 20 ml Balance 2130 ml Intake IV Total 2150 ml Output Estimated Blood Loss 20 ml # Voids 2 General: Alert, Oriented X3, Cooperative Abdomen: Soft, Other (binder in place) Problem List s/p VIH advance diet pain control ambulate home in AM likely Justicifation of Admission Dx: Justifications for Admission: Justification of Admission Dx: Yes Comments: s/p VIH repair AMY MOSS APRN Feb 15, 2020 09:13
--- NOTE | 2020-02-15 09:41 | NUR ---
SW following. Discussed with RN, pt from home independent, room air, clear liquid diet. Per surgical note, pt is ambulating, advance diet and home in AM likely. RN advised no SW needs at this time. SW will continue to follow.
[2020-02-15] MEDS: IV 1/2 NORMAL SALINE 1,000 ML IV SCH (10:06)
[2020-02-15 11:00] VITALS: BP 112/55
[2020-02-15] MEDS ORDERED: HYDR-2761 PO (12:56)
--- NOTE | 2020-02-15 13:29 | DISCH ---
DISCHARGE INSTRUCTIONS Condition on Discharge Condition on Discharge: Stable Activity After Discharge Activity Instructions for Disc: Activity as tolerated Bathing Instructions: Shower-keep dressing dry Lifting Instructions after Dis: No heavy lifting Exercise Instruction after Dis: Progress as tolerated Driving Instructions after Dis: Do not drive Weight Bearing Status after Di: No restrictions Diet after Discharge Diet after Discharge: GI Soft Diet Texture: Regular Liquid Texture: Thin Liquid Swallowing Supervision: None needed Wound Incision Care Wound/Incision Care: Change dressing, May get incision wet Other wound/incision instructi: wear abdominal binder Contacting the after DC Call your doctor for: Concerns you may have Follow-Up Follow up with: Dr Hawkins 2 weeks, call to schedule [phone] Treatment/Equipment after DC Adaptive Equipment Issued: None AMY MOSS [employer] Feb 15, 2020 13:29
[2020-02-15 15:00] VITALS: BP 119/67
== END 2020-02-15 19:35 | disposition home or self-care (01) ==
LOC: SURG 05:53 → 4 NORTH 09:06
PROVIDERS: ADMIT Surgery; ATTEND Surgery
DX: K43.9 Ventral hernia without obstruction or gangrene (principal); I11.0 Hypertensive heart disease with heart failure; I50.32 Chronic diastolic (congestive) heart failure; J44.9 Chronic obstructive pulmonary disease, unspecified; E66.01 Morbid (severe) obesity due to excess calories; E78.5 Hyperlipidemia, unspecified; E03.9 Hypothyroidism, unspecified; Z68.42 Body mass index [BMI] 45.0-49.9, adult
CPT/HCPCS: 49560; 49568; 94640; 94760; A7015; C1713; C1781; G0378; G0379; J1100; J1956; J2370; J2405; J2704; J2710; J3010; J3490; J7120; J7613; J7626

== ENCOUNTER → 2021-02-19 | Outpatient (CLI) | payer BC ==
[~2021-02-19] MED LIST changes: -CITA10TA4 PO; +CITA10TA5 PO; +HYDR-2761 PO
--- NOTE | 2021-02-19 16:45 | RAD ---
MR#: [id number] Date of Study: 02/19/2021 Ordering Physician: RAMIRO BONNER, Referring Physician: RAMIRO BONNER, Tech: Jeninfer Das, DUNCAN, RVT, RTR APPROVED REPORT Patient Location: OUT-PATIENT Indications Claudication: Leg Pain VELOCITY AND DOPPLER WAVEFORM ANALYSIS RIGHT cm/secWaveformSeverity LEFT cm/secWaveform Severity pCFA 112.9pCFA 135.1 Prof Fem Art. 89.8Prof Fem Art. 93.5 Fem Art Prox. 84.2Fem Art Prox. 131.4 Fem Art Mid. 123.3Fem Art Mid. 62.0 Fem Art Dist. 105.0Fem Art Dist. 109.8 Pop Art(AK) 62.8Pop Art(AK) 74.8 EGG CASER Prox. 44.5PTA Prox. 97.0 EGG CASER Dist. 104.1PTA Dist. 109.9 Per Art Prox. 58.1Per Art Prox. 92.3 JEANNE Prox. 55.7ATA Prox. 56.5 DPA 118DPA 88 Findings Grayscale images of the bilateral lower extremity arterial vessels are technically limited due to bod y habitus but grossly demonstrate moderate diffuse atherosclerosis. On the right side there are mostly triphasic and biphasic waveforms without any focal high-grade obst ruction. On the left side no focal obstruction is noted with again triphasic and biphasic waveforms. There is bilateral three-vessel runoff. Critical Notification Critical Value: No <Conclusion> 1. No significant lower extremity arterial occlusive disease noted. Signed by : Jimmy Ragland, Electronically Approved : 02/19/2021 16:44:55
== END ==
LOC: US 12:05
PROVIDERS: ATTEND Internal Medicine Cardiovascular Disease
DX: I73.9 Peripheral vascular disease, unspecified (principal); M79.604 Pain in right leg; M79.605 Pain in left leg
CPT/HCPCS: 93925